=== PATIENT | male | born 1960 | race Caucasian/White ===

== ENCOUNTER 2022-09-02 15:22 | Outpatient (CLI) | payer BC, SELFPAY ==
--- NOTE | 2022-09-02 16:00 | CRLHL7_ITS ---
For Patients: As a result of the Cures Act, medical imaging exams and procedure reports are released immediately into your electronic medical record. You may view this report before your referring provider. If you have questions, please contact your health care provider. INDICATION: Leg pain and swelling. TECHNIQUE: Ultrasound venous duplex lower right extremity. Compression venous exam was performed using pedraza-scale, color Doppler, and spectral Doppler analysis. COMPARISON: None. FINDINGS: Deep veins: Sonographic imaging demonstrates the right common femoral, deep femoral, superficial femoral, popliteal, posterior tibial and the contralateral left common femoral veins to be fully compressible with normal color Doppler blood flow. Superficial veins: Greater saphenous vein is fully compressible. No popliteal cyst. 0.8 x 0.5 x 0.6 Centimeter echogenic nodular lesion with posterior shadowing in the subcutaneous soft tissues in the area of pain and redness may represent calcification, foreign body or soft tissue lesion. IMPRESSION: No DVT in the right lower extremity. 0.8 x 0.5 x 0.6 Centimeter echogenic nodular lesion with posterior shadowing in the subcutaneous soft tissues in the area of pain and redness may represent calcification, foreign body or soft tissue lesion. Dictated by Charlotte Hwang MD @ 09/02/2022 4:47:03 PM (Electronically Signed)
== END 2022-09-02 15:23 | disposition home or self-care (01) ==
LOC: US 15:22
PROVIDERS: PCP Nurse Practitioner Family; Visit Provider Nurse Practitioner Family
DX: M79.604 Pain in right leg (principal); M79.89 Other specified soft tissue disorders
CPT/HCPCS: 93971